=== PATIENT | male | born 1975 | race Caucasian/White ===

== ENCOUNTER 2016-06-23 17:20 | Emergency (ER) | payer MEDICAID, OTHER ==
[2016-06-23] MEDS ORDERED: HYDROmorphone 1 MG/ML Syringe IVPUSH ONE ×2 (18:13→19:14)
[2016-06-23] MEDS ORDERED: Sodium Chloride 0.9% 10 ML Syringe FLUSH PRN (18:13)
[2016-06-23] MEDS ORDERED: Ondansetron 4 MG/2 ML SDV IVPUSH ONE (18:14)
[2016-06-23] MEDS ORDERED: Sodium Chloride 0.9% 1,000 ML IV SCH (18:30)
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
[2016-06-23] MEDS ORDERED: Iopamidol 612 MG/ML 150 ML Bottle IV PRN (18:35)
[2016-06-23 21:38] VITALS: BP 133/75
== END 2016-06-23 23:04 | disposition home or self-care (01) ==
LOC: JP.ED 17:20
DX: S22.089A Unspecified fracture of T11-T12 vertebra, initial encounter for closed fracture (principal); V49.50XA Passenger injured in collision with unspecified motor vehicles in traffic accident, initial encounter; Y92.410 Unspecified street and highway as the place of occurrence of the external cause; I10 Essential (primary) hypertension; F41.8 Other specified anxiety disorders; F17.210 Nicotine dependence, cigarettes, uncomplicated; Z90.49 Acquired absence of other specified parts of digestive tract; Z98.890 Other specified postprocedural states; Z88.0 Allergy status to penicillin; Z88.2 Allergy status to sulfonamides
CPT/HCPCS: 36415; 71260; 72128; 72131; 74177; 80053; 84484; 85025; 93005; 96361; 96374; 96375; 96376; 99285; J1170; J2405; J7030; J7040; 93010; 99284

== ENCOUNTER 2019-11-24 12:03 | Emergency (ER) | payer MEDICAID, OTHER ==
[2019-11-24 12:13] VITALS: BP 154/96; PULSE 107
[2019-11-24] MEDS ORDERED: Ketorolac 30 MG/ML SDV IM ONE (12:45)
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
[2019-11-24] MEDS ORDERED: fentaNYL 100 MCG/2 ML SDV IM ONE (13:30)
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
[2019-11-24] MEDS ORDERED: Bacitracin Oint 1 GM U/D Packet TOP ONE (14:19)
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
== END 2019-11-24 14:43 | disposition home or self-care (01) ==
LOC: JP.ED 12:03
DX: S01.01XA Laceration without foreign body of scalp, initial encounter (principal); S50.11XA Contusion of right forearm, initial encounter; S50.12XA Contusion of left forearm, initial encounter; H92.01 Otalgia, right ear; F17.210 Nicotine dependence, cigarettes, uncomplicated; I10 Essential (primary) hypertension; E66.9 Obesity, unspecified; Z68.29 Body mass index [BMI] 29.0-29.9, adult; Z88.0 Allergy status to penicillin; Z88.2 Allergy status to sulfonamides; Y04.0XXA Assault by unarmed brawl or fight, initial encounter
CPT/HCPCS: 70450; 70486; 73090; 96372; 99284; J1885; J3010

== ENCOUNTER 2021-01-02 06:32 | Day surgery (SDC) | payer MEDICAID ==
[2021-01-02] MEDS ORDERED: Dextrose 5%-Lactated Ringers 1,000 ML IV SCH (07:00)
[2021-01-02] MEDS ORDERED: Propofol 200 MG/20 ML SDV ONE (07:25)
[2021-01-02] MEDS ORDERED: Midazolam 1 MG/ML 2 ML SDV ONE (07:25)
[2021-01-02] MEDS ORDERED: fentaNYL 100 MCG/2 ML SDV ONE (07:25)
[2021-01-02] MEDS ORDERED: Ondansetron 4 MG/2 ML SDV ONE (07:37)
[2021-01-02] MEDS ORDERED: Dexamethasone 4 MG/ML SDV ONE (07:37)
[2021-01-02] MEDS ORDERED: Glycopyrrolate 0.2 MG/ML 2 ML SDV IVPUSH ONE (07:45)
[2021-01-02] MEDS ORDERED: Pantoprazole 40 MG Vial IVPUSH ONE (08:30)
[2021-01-02 09:13] VITALS: BP 117/65; PULSE 61
--- NOTE | 2021-01-04 21:57 | OR ---
DATE OF PROCEDURE: 01/02/2021 SURGEON: Ashvin Jerome MD PREOPERATIVE DIAGNOSIS: Probable gastroesophageal reflux disease. POSTOPERATIVE DIAGNOSES: 1. Gastroesophageal reflux disease with 3 cm hiatal hernia and ulcerated esophagitis. 2. Mild antral gastritis. PROCEDURE PERFORMED: Esophagogastroduodenoscopy with: 1. Antral biopsies for CLOtest. 2. Biopsy of esophagogastric junction for histologic evaluation. INDICATION FOR PROCEDURE: This is a 45-year-old male presenting with progressively worsening gastroesophageal reflux disease. He presently has not been on any antireflux medication. The plan is to proceed with an upper endoscopy with biopsies as indicated. Potential risks including bleeding and perforation were discussed, and the patient wishes to proceed. DETAILS OF PROCEDURE: The patient was taken to the operating room, placed in a left lateral decubitus position. IV sedation was administered, after which the upper GI endoscope was passed orally through the length of esophagus into the stomach with retroflexion view of the fundus, thereafter through the pyloric channel and into the proximal duodenum. Findings included somewhat reddened hypopharynx and larynx consistent with reflux disease. The upper esophageal sphincter and esophageal body were unremarkable. The patient had a roughly 3 cm hiatal hernia with linear ulcerations at the esophagogastric junction. These were covered with some fibrinous exudate but not presently bleeding. There was no stricturing present. Otherwise, within the stomach, there was some patchy antral gastritis. The visualized portions of the pyloric channel and duodenum were unremarkable. At this point, biopsies were obtained from the antrum and sent for CLOtest for H pylori, and multiple biopsies were obtained from the esophagogastric junction and sent for histologic evaluation. No bleeding from the biopsy sites was seen and the procedure then concluded. The plan will be to give the patient some Protonix IV in the recovery room, and then begin Protonix 40 mg q. day, and we will see the patient back on January 18, 2021, for assessment to see how well the medical management is working. Ashvin Jerome MD /[id number]
== END 2021-01-02 09:00 | disposition home or self-care (01) ==
LOC: JP.SDS 06:32
PROVIDERS: ATTEND Surgery
DX: K22.10 Ulcer of esophagus without bleeding (principal); K21.00 Gastro-esophageal reflux disease with esophagitis, without bleeding; K44.9 Diaphragmatic hernia without obstruction or gangrene; K29.60 Other gastritis without bleeding; Z88.0 Allergy status to penicillin; Z88.2 Allergy status to sulfonamides
CPT/HCPCS: 43239; 87081; 88305; C9113; J1100; J2250; J2405; J2704; J3010; J7121

== ENCOUNTER 2025-03-12 11:05 | Emergency (ER) | payer MEDICAID ==
[2025-03-12 11:44] VITALS: BP 186/107; PULSE 88
[2025-03-12 12:00] LABS: BASOPHILS PERCENT AUTO 0.2 % (0.1-1.3); EOSINOPHILS PERCENT AUTO 0.2 % (0.0-5.4); IMMATURE GRAN ABSOLUTE AUTO 0.08 K/uL (0.00-0.23); IMMATURE GRAN PERCENT AUTO 0.7 % (0.0-0.7); LYMPHOCYTES ABSOLUTE AUTO 1.23 K/uL (0.8-3.3); LYMPHOCYTES PERCENT AUTO 11.2 % (11.4-47.7); MONOCYTES ABSOLUTE AUTO 0.69 K/uL (0.20-0.90); MONOCYTES PERCENT AUTO 6.3 % (3.3-12.6); NEUTROPHILS ABSOLUTE AUTO 8.94 K/uL (1.0-7.6); NEUTROPHILS PERCENT AUTO 81.4 % (40.0-78.1); PLATELET COUNT,PLT 294 K/uL (130-375); RED BLOOD CELL COUNT 5.59 M/uL (4.14-5.76); WHITE BLOOD CELL COUNT,WBC 11.0 K/uL (3.2-11.0)
[2025-03-12 12:01] LABS: BASOPHILS ABSOLUTE AUTO 0.02 K/uL (0.00-0.10); EOSINOPHILS ABSOLUTE AUTO 0.02 K/uL (0.00-0.40)
[2025-03-12] MEDS: diphenhydrAMINE 50 MG/ML SDV IM ONE (12:03)
[2025-03-12 12:21] LABS: A/G RATIO 0.9 (1.2-2.2); ALANINE AMINOTRANSFERASE,ALT 50 U/L (12-78); ASPARTATE AMNIOTRANSFERASE,AST 41 U/L (15-37); BILIRUBIN TOTAL 0.9 mg/dL (0.2-1.0); BLOOD UREA NITROGEN,BUN 16 mg/dL (7-18); CARBON DIOXIDE,CO2 27 mmol/L (21-32); CHLORIDE,CL 102 mmol/L (100-108); CREATININE 1.1 mg/dL (0.8-1.3); EST CRCL DRUG DOSING (CG) 89.16 mL/min; ESTIMATED GFR 82 mL/min (>60); GLUCOSE RANDOM 109 mg/dL (74-106); POTASSIUM,K 3.6 mmol/L (3.6-5.2); PROTEIN TOTAL,TP 7.9 g/dL (6.4-8.2); SODIUM,NA 141 mmol/L (140-148)
== END 2025-03-12 13:09 | disposition home or self-care (01) ==
LOC: JP.ED 11:05
DX: R10.84 Generalized abdominal pain (principal); I10 Essential (primary) hypertension; K21.9 Gastro-esophageal reflux disease without esophagitis; F17.210 Nicotine dependence, cigarettes, uncomplicated; Z88.0 Allergy status to penicillin; Z88.2 Allergy status to sulfonamides; Z79.899 Other long term (current) drug therapy
CPT/HCPCS: 36415; 74019; 80053; 83690; 85025; 96372; 99284; J1200; J1790